=== PATIENT | female | born 1965 | race Caucasian/White ===

== ENCOUNTER → 2017-12-02 07:40 | Day surgery (SDC) | payer BC, OTHER ==
[~2017-12-02 07:40] MED LIST: Buffered Lidocaine 0.9% SYRIN* 5 ML/SYR SYRINGE INTRADERM ONE; Buffered Lidocaine 0.9% SYRIN* 5 ML/SYR SYRINGE ONE; Bupivacaine 0.25% SDV* 30 ML ONE; Dexamethasone IV* 4 MG/ML 1 ML (4 MG) ONE; Dexamethasone TAB* 4 MG PO ONE; EPHEDrine (Pressors)* 50 MG/ML VIAL ONE; Famotidine IV* 10 MG/ML 2 ML (20 mg) IV ONE; Famotidine IV* 10 MG/ML 2 ML (20 mg) ONE; HYDROmorphone INJ* 1 MG/ML CARPUJECT SYRINGE IV PRN; Ketorolac INJ* 30 MG/ML 1 ML VIAL ONE; Lidocaine 1% INJ* 10 MG/ML 30 ML SDV ONE; Lidocaine 2% PF * 5 ML VIAL ONE; Midazolam* 1 MG/ML 2 ML VIAL (2 MG) ONE; Naloxone* 0.4 MG/ML 1 ML VIAL IV PRN; Ondansetron INJ* 2 MG/ML VIAL IV PRN; Ondansetron INJ* 2 MG/ML VIAL ONE; PROCHLORPERAZINE INJ 5 MG/ML 2 ML VIAL IV PRN; Propofol* 10 MG/ML 20 ML BTL IV PUSH ONE; Propofol* 500 MG/50 ML BTL ONE; Sodium Citrate/Citric Acid* 15 ML UDC ONE; Sodium Citrate/Citric Acid* 15 ML UDC PO ONE; ceFAZolin 2 GM in 100 MLS NS (*) BAG IVPB ONE; fentaNYL* 50 MCG/ML 2 ML VIAL (100 MCG VIAL) IV PRN; fentaNYL* 50 MCG/ML 2 ML VIAL (100 MCG VIAL) ONE; oxyCODONE/Acetamin 5/325 MG* TAB ONE
[2017-12-02] MEDS: oxyCODONE/Acetamin 5/325 MG* TAB PO PRN ×2 (10:20→10:21)
[2017-12-02 11:11] VITALS: BP 141/81
--- NOTE | 2017-12-03 12:43 | OP ---
DATE OF OPERATION: 12/02/17 - [facility] DATE OF : 67 SURGEON: Ryan Rogers DPM. ANESTHESIA: MAC local. PRE-OP DIAGNOSIS: Left foot plantar fibromatosis. POST-OP DIAGNOSIS: Left foot plantar fibromatosis. OPERATIVE PROCEDURE: Left plantar fascia release. ESTIMATED BLOOD LOSS: Less than 10 cc. IV FLUIDS: LR 1000 cc. DRAINS: None. SPECIMENS: None. DESCRIPTION OF PROCEDURE: The patient was taken to the operating room and was placed in supine position. Time-out was called and OR team agreed. The left foot was then blocked with 8 cc of 1% lidocaine plain local to the site. The foot was then prepped and draped in a sterile manner. The left foot was then exsanguinated with an Esmarch bandage. The cuff was then inflated to 250 mmHg. Attention was then paid to the plantar aspect of the left foot at the level of the plantar medial calcaneal tubercle. I traced the medial bed of the plantar fascia down to its insertion . I made a linear incision over the linear band under nonweightbearing surface of the plantar heel. This was followed by sharp and blunt dissection from the epidermis, dermis, subcutaneous and down to the deep fascia. All bleeders were brought into control via Bovie and all vital structures were from the site. I proceeded to make my way down to the subcutaneous fat down to the medial bed of the plantar fascia. The medial bed was identified. It should be noted that a portion of the plantar fascia was severely thickened, the normal size around 4 mm. I measured around 8 to 9 mm in thickness in some areas. I also noted that the most medial aspect of the medial band is partially torn. I then proceeded to make a linear cut across the plantar fascia, cutting it, transecting completely. Once it was noted that the dissection went all the way down to the muscle, the procedure was then deemed completed. The wound was irrigated, closed in a layered anatomical fashion. The patient tolerated the procedure and anesthesia well. I injected postoperatively the site with approximately 8 cc of 0.25% Marcaine plain. The patient was taken to Recovery in stable condition. [id number]/[facility] #: [id number] MTDDonna
== END | disposition home or self-care (01) ==
LOC: OR 07:40
PROVIDERS: ATTEND Podiatrist
DX: M72.2 Plantar fascial fibromatosis (principal); Z87.440 Personal history of urinary (tract) infections; G47.00 Insomnia, unspecified
CPT/HCPCS: A9270-GY; J1100; J1885; J2250; J2405; J2704; J3010